=== PATIENT | male | born 1980 | race Two or more races ===

== ENCOUNTER 2025-05-18 18:26 | Emergency (ER) | payer MEDICAID, OTHER ==
[~2025-05-18] VITALS: Ht 175.3 cm; Wt 92.0 kg
[2025-05-18 20:48] VITALS: BP 118/83; PULSE 68; RESP 19; TEMP 97.5; O2SAT 97
--- NOTE | 2025-05-18 21:02 | DVH ---
CLINICAL INDICATION: POSSIBLE FB BTW 5TH AND 4TH DIGIT PROXIMAL ASPECT TECHNIQUE: 3 views XY L HAND 3V XRAY Comparison: None FINDINGS: No acute fracture or joint malalignment. Normal osseous mineralization. No significant degenerative change. Soft tissue swelling and laceration hand laceration between the 4th and 5th digits. Mineral ized densities dorsal to the 5th distal phalangeal base. IMPRESSION: 1. Soft tissue laceration between the left 4th and 5th fingers without evidence of focal radiopaque f oreign body. 2. Mineralized densities dorsal to the 5th distal phalangeal base may represent remote injury, arthro debi or other etiology.
[2025-05-18] MEDS ORDERED: AUG875T PO (21:10)
--- NOTE | 2025-05-18 21:10 | ED.PDOC ---
Foreign Body HPI Comments HAS THORN FROM CATUS THAT BROKE OFF AT BASE OF LEFT PINKY FINGER. DENIES NUMBNESS, BLEEDING OR WEAKNESS Chief Complaint: Foreign Body Time Seen by MD: 18:33 History of Present Illness: Nurses Notes, Medications, Allergies Allergies: Coded Allergies: NO KNOWN ALLERGIES (Unverified , 05/18/25) Home Meds Active Scripts Amoxicillin & Pot Clavulanate (AUGMENTIN TABLET) 875 Mg Tb, 875 MG PO BID for 7 Days, #14 TAB Prov:SERGE PITTMAN [employer]GAL [employer]CRIBER 05/18/25 Information Source: Patient Mode of Arrival: Ambulatory Past Medical History PAST MEDICAL HISTORY: Denies Surgical History: Denies all surgeries Family History Family History: No family hx of Stroke Social History Smoker: Non-Smoker Alcohol: Denies ETOH Use Drugs: Denies Drug Use All Other Systems: Reviewed and Negative (SEE HPI) Physical Exam General Appearance: No Apparent Distress, Normal HEENT: Pharynx Normal Neck: Full Range of Motion, Non-Tender Respiratory: Lungs Clear, No Respiratory Distress, Normal Breath Sounds Cardiovascular: No Murmur, Normal Peripheral Pulses, Regular Rate/Rhythm Breast Exam: Deferred Gastrointestinal: Non Tender, Soft Genitalia: Deferred Pelvic: Deferred Rectal: Deferred Extremities: Normal capillary refill, Normal range of motion Musculoskeletal : Apperance: Normal Neurologic: Alert, No Motor Deficits, Normal Affect, Normal Mood, No Sensory Deficits Cerebellar Function: Normal Reflexes: NOT DONE Skin: Dry, Normal Color, Warm, Wounds Lymphatic: No Adenopathy Was a procedure done? Was a procedure done?: Yes Sedation Sedation?: No Informed consent obtained: Yes Foreign Body Removal Foreign body in: Skin Anesthetic: Lidocaine, Without Epi Prep: Betadine, Irrigation Procedure: Not Identified, Unable to Remove Informed consent obtained: Yes Risks/benefits/alt described: Yes Notes Unable to remove x-ray was done as well after procedure no noted foreign body on x-ray. Wound Steri-Strips cleansed patient tolerated well with minimal blood loss. FB Differential Dx Differential Diagnosis: Abrasion, Foreign Body, Laceration X-Ray, Labs, Meds, VS Vital Signs Date Time Temp Pulse Resp B/P (MAP) Pulse Ox O2 Delivery O2 Flow Rate FiO2 05/18/25 20:48 68 19 97 Room Air 05/18/25 20:48 97.5 68 19 118/83 (95) 97 97.5 05/18/25 18:27 98.1 69 18 127/80 100 98.1 X-Ray, Labs, Meds, VS Comment IMPRESSION: 1. Soft tissue laceration between the left 4th and 5th fingers without evidence of focal radiopaque foreign body. 2. Mineralized densities dorsal to the 5th distal phalangeal base may represent remote injury, arthropathy or other etiology. Patient placed in Matt wrap wound Steri-Strips x-ray shows no acute foreign body. Script trial of prophylactic antibiotics. Advised him to follow up in 2-3 days with his PCP if symptoms persist consider referral to general surgeon or hand if symptoms persist. [id number] Tylenol or Motrin as needed for the pain per labeled dosing instructions. ER return precautions given patient indicates understanding agrees with discharge plan of care. Time of 1ST Reevaluation: 18:33 Reevaluation 1ST: Unchanged Time of 2ND Reevaluation: 21:05 Reevaluation 2ND: Improved Patient Education/Counseling: Diagnosis, Treatment, Need For Follow Up Family Education/Counseling: No Family Present Departure 1 Departure Time of Disposition: 21:09 Impression: Primary Impression: Puncture wound of finger of left hand Qualified Codes: S61.239A - Puncture wound without foreign body of unspecified finger without damage to nail, initial encounter Disposition: HOME / SELF CARE / HOMELESS Condition: Stable e-Prescriptions Amoxicillin & Pot Clavulanate (AUGMENTIN TABLET) 875 Mg Tb 875 MG PO BID for 7 Days, #14 TAB Prov: SERGE PITTMAN 05/18/25 Discharged With: Self Critical Care Note Critical Care Time?: No Stability Stability form required: No SERGE PITTMAN May 18, 2025 21:10
[2025-05-18] MEDS: TETANUS-DIPTH-ACEL PERTUSSIS 0.5ML SYR Tdap IM ONE (21:19)
== END 2025-05-18 21:21 | disposition home or self-care (01) ==
LOC: ER 18:28
DX: S61.432A Puncture wound without foreign body of left hand, initial encounter (principal); X58.XXXA Exposure to other specified factors, initial encounter; Y93.89 Activity, other specified; Y92.89 Other specified places as the place of occurrence of the external cause; Y99.8 Other external cause status
CPT/HCPCS: 73130